=== PATIENT | female | born 1980 | race Caucasian/White ===

== ENCOUNTER 2018-02-14 10:50 | Emergency (ER) | payer SELFPAY ==
[2018-02-14 11:05] VITALS: BP 139/90
--- NOTE | 2018-02-14 12:08 | UC ---
Gigi Dangelo Rebecca, scribed for [facility],Clemente Ferreira MD on 02/14/18 at 1137 . Respiratory Complaint HPI - HPI Summary HPI Summary: In room: Pt is a 37 y/o F who presents to [facility] with a CC of cough and chest pain for about 6 days. Chest pain is associated with cough, located in the central chest with radiation to the back and moderate, ranked 5/10. Cough is productive, though she cannot expel the sputum. Has been taking Nyquil and Mucinex. Additionally c/o L ear pain, sore throat, and sinus congestion (chronic ). Notes mild diarrhea, which is resolved. Denies V/D. Was seen by her PCP 3 days ago (Friday) and was diagnosed with Cipro which was then switched to Amoxicillin which she stopped due to it being ineffective. 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 SHx former smoker - quit multiple years ago. PMHx PNA for which she was not hospitalized though has used inhalers in the past. MD: Vital signs stable. Afebrile, BP 149/90, patient is not being treated for HTN, pulse ox is 98. History of bronchitis, hysterectomy, depression, endometriosis, former smoker. Visit history significant for multiple visits for cough and congestion. Nurse's: pt has had cough, runny nose, sinus pressure, feeling "fuzzy all over" . pt had a chest xray on friday. pt was on cipro and could not sleep so she stopped taking it. started amoxicillin and did not finish it. pt was then rx'd augmentin but did not start it thinking she would feel better. - History of Current Complaint Chief Complaint: UCRespiratory Stated Complaint: COUGH,CONGESTED Time Seen by Provider: 02/14/18 11:27 Hx Obtained From: Patient Hx Last Menstrual Period: 10/12/14 Onset/Duration: Lasting Days - 6 days, Still Present Severity Currently: Moderate Pain Intensity: 7 Pain Scale Used: 0-10 Numeric Character: Cough: Productive Associated Signs And Symptoms: Positive: Pleuritic Chest Pain - Allergies/Home Medications Allergies/Adverse Reactions: Allergies Allergy/AdvReac Type Severity Reaction Status Date / Time enviornmental allergies Allergy See Comment Uncoded 02/14/18 11:06 PMH/Surg Hx/FS Hx/Imm Hx - Additional Past Medical History Additional PMH: POSITIVE PMHx: Endometriosis Respiratory History: Bronchitis Psychological History: Depression - Surgical History Surgical History: Yes Surgery Procedure, Year, and Place: FUSION C4-6, 6,7. CYSTECTOMY. SALPINGECTOMY. hysterectomy - Family History Known Family History: Positive: Cardiac Disease, Other - Stroke - Social History Alcohol Use: Occasionally Substance Use Type: None Smoking Status (MU): Former Smoker Type: Cigarettes Amount Used/How Often: 1-5 per day Length of Time of Smoking/Using Tobacco: 18 yrs on/off Review of Systems Constitutional: Negative Skin: Negative Eyes: Negative ENT: Sore Throat, Ear Ache - Left, Sinus Congestion Respiratory: Cough Cardiovascular: Chest Pain - Central CP with cough Gastrointestinal: Diarrhea - resolved Genitourinary: Negative Motor: Negative Neurovascular: Negative Musculoskeletal: Negative Neurological: Negative Psychological: Negative All Other Systems Reviewed And Are Negative: Yes - Comments Additional Review of Systems Comments: POSITIVE: Productive cough, chest pain (w/ cough), L ear pain, sore throat, sinus congestion, diarrhea (resolved) NEGATIVE: N/V Physical Exam - Summary Physical Exam Summary: Appearance: The patient is well-appearing, is in no pain distress, and is well- nourished. Eyes: Conjunctiva are clear. ENT: The hearing is grossly normal and the TMs are normal. There is no muffled or hoarse voice. Posterior lymph patches. Mild frontal and nasal sinus discomfort with palpation. Neck: The neck is supple and there is no lymphadenopathy. Respiratory: The chest is nontender. There is no respiratory distress. Extended expiratory phase and wheezes bilaterally. Cardiovascular: Heart is regular rate and rhythm. There is no murmur. Abdomen: The abdomen is soft and nontender. There is no organomegaly. Bowel sounds: present Musculoskeletal: Strength is intact. The patient moves all extremities. Neurological: The patient is alert. Psychological: The patient displays age appropriate behavior Skin: Negative for rashes. Triage Information Reviewed: Yes Vital Signs: Initial Vital Signs Temp 97.5 F 02/14/18 11:01 Pulse 84 02/14/18 11:01 Resp 18 02/14/18 11:01 BP 139/90 02/14/18 11:01 Pulse Ox 98 02/14/18 11:01 Vital Signs Reviewed: Yes UC Diagnostic Evaluation - Laboratory O2 Sat by Pulse Oximetry: 98 Respiratory Course/Dx - Course Course Of Treatment: Pt presents with cough and bronchospasm, Hx of previous bronchospasm. She works around aerosolized soaps and this may be contributing to her cough. Dx of bronchtis with bronchospasm and chronic sinusitis. Hypertensive BP reading (>=140/90); patient referred to PCP within 1 day - 4 weeks for follow up. Medications have been included in the original chart and reviewed. - Differential Dx/Diagnosis Differential Diagnosis/HQI/PQRI: Other - PNA vs. URI Provider Diagnoses: 1) Bronchitis with bronchospasm. 2) Chronic sinusitis Discharge - Sign-Out/Discharge Documenting (check all that apply): Discharge - Discharge - Discharge Plan Condition: Stable Disposition: HOME Prescriptions: Albuterol HFA INHALER* [Ventolin HFA Inhaler*] 1 - 2 puff INH Q4H PRN #1 mdi PRN Reason: Shortness Of Breath Benzonatate CAP* [Tessalon CAP*] 100 mg PO TID #20 cap MDD 3 DOXYcycline CAP(*) [DOXYcycline 100MG CAP(*)] 100 mg PO BID #14 cap MDD 2 Inhaler, Assist Devices [Aerochamber Mv] 1 mis XX Q6HR #1 mis Patient Education Materials: Acute Bronchitis (ED), Bronchospasm (ED) Forms: *Work Release Referrals: Fly Leigh MD [Primary Care Provider] - Additional Instructions: Your blood pressure reading today was 139/90, indicating HYPERTENSION. Follow- up with your primary care provider within 4 weeks for blood pressure readings and further evaluation. PLEASE SEEK CARE AT THE EMERGENCY DEPARTMENT IF SYMPTOMS WORSEN OR IF NEW SYMPTOMS DEVELOP. FOLLOW UP WITH YOUR PRIMARY CARE PHYSICIAN. WE DISCUSSED: 1. You have bronchitis with bronchospasm. Begin the albuterol inhaler, 2 puffs , 3 to 4 times a day for 5-7 days. Use spacer. 2. Doxycycline, twice a day for 10 days. 3.Tessalon for cough during the day. 4. Also see instructions below: COUGH, CONGESTION of CHEST, SINUSES OR EARS: The most important goal is to liquefy all the phlegm and get it out of your head and chest. Any illness causing cough, congestion, sore throat or sinus discomfort can be helped by doing the following: STAND UNDER SHOWER STREAM TO LOOSEN SECRETIONS. STAY AWAY FROM ANY SMOKE OR IRRITANTS. WHAT ELSE CAN HELP RELIEVE YOUR SYMPTOMS: GENERAL TYPES OF MEDICINE THAT MAY HELP DECONGESTANTS: helps relieve stuffiness and clears sinuses. Pseudoephedrine ( Sudafed or generic) is effective but you need to ask the pharmacist for it because it may be kept behind the counter. ANTIHISTAMINES: are NOT helpful in many colds and flus because they can worsen sore throat, dry eyes and mouth and cause drowsiness. Examples are diphenhydramine, doxylamine and chlorpheniramine. They can help dry you out if you are having profuse, clear drainage from the nose. EXPECTORANTS: helps thin mucous in the nose and chest, making it easier to clear the fluid out. Expectorants are in most combination cough/cold remedies and should be taken with plenty of water. Guaifenesin is the most common expectorant and it comes in pill or liquid form. Mucinex is an extended release form of guaifenesin. COUGH SUPPRESANT: reduces the body's cough reflex. Dextromethorphan is in over the counter products. Rarely, narcotics such as codeine or hydrocodone are used to suppress cough. SPECIFIC MEDICATIONS: Some of these may come in combination. In general, they all contain the same or similar active ingredients. The most important goal is to liquefy all the phlegm and get it out of your head and chest: The following medicines (you can buy them without prescription) may help: To help with cough: DEXTROMETHORPHAN (Vicks, Robitussin, Nyquil and other brands) To help break up phlegm: GUAIFENESIN (Mucinex, Robitussin, other brands) To help clear congestion: PSEUDOEPHEDRINE (Sudafed, Dimetapp, other brands) TRY TO CLEAR NOSE: AFRIN NASAL SPRAY: 2-3 SPRAYS PER NOSTRIL, TWICE A DAY FOR TWO DAYS ONLY. USEFUL WAYS TO FEEL BETTER WITHOUT MEDICATIONS: STAND UNDER SHOWER STREAM TO LOOSEN SECRETIONS. USE A VAPORIZOR. STAY AWAY FROM ANY SMOKE OR IRRITANTS. USE SALINE NASAL SPRAY TO KEEP FLOW OF MUCOUS FROM NOSTRILS AND SINUSES. CONSIDER USING NETI POT TO HELP WITH ALLERGIES AND CONGESTION IN THE NOSE. USE THIS THREE TIMES A WEEK. YOU CAN GET THIS AT [facility] IN [place] OR VARIOUS DRUGSTORES. DRINK LOTS OF WARM FLUIDS USEFUL HOME REMEDIES: WARM WATER GARGLES, WITH TSP OF SALT PER 8 OUNCES OF WATER, GARGLE FOR A FEW SECONDS AND SPIT OUT; GARGLE AND SPIT OUT; EVERY THREE HOURS. AND/OR: WARM WATER OR TEA, HONEY AND LEMON; 2-3 CUPS A DAY. FOR SORE THROAT: KEEP THROAT MOIST WITH LOZENGES; TEA AND HONEY. USE WARM WATER GARGLES 3-4 TIMES A DAY. FOLLOW UP: RE-CHECK IN 1O DAYS, NEEDED, IF YOU ARE NOT IMPROVING. RETURN HERE OR SEE YOUR PHYSICIAN. RE-CHECK SOONER IF INCREASED PAIN OR TEMPERATURE. - Billing Disposition and Condition Condition: STABLE Disposition: HOME The documentation as recorded by the Gigi pollock Rebecca accurately reflects the service I personally performed and the decisions made by me, Clemente Condon MD.
== END 2018-02-14 12:13 | disposition home or self-care (01) ==
LOC: UCEAST 10:50
DX: J20.9 Acute bronchitis, unspecified (principal); J32.9 Chronic sinusitis, unspecified; H92.02 Otalgia, left ear; N80.9 Endometriosis, unspecified; F32.9 Major depressive disorder, single episode, unspecified; Z87.891 Personal history of nicotine dependence
CPT/HCPCS: 99212; G0463

== ENCOUNTER 2018-11-07 11:08 | Emergency (ER) | payer SELFPAY ==
[2018-11-07 11:19] VITALS: BP 135/86
--- NOTE | 2018-11-07 11:45 | UC ---
Ear Complaint HPI - HPI Summary HPI Summary: 38-year-old woman comes to clinic today with a chief complaint of right ear pain. Been going on for more than a week. She has pain in her right upper jaw where she is got a recurrent dental infection. Minimal rhinorrhea. The tooth does hurt more when she presses on it. No fevers or chills. No cough or chest congestion. She has been taking ibuprofen which does help decrease the pain. No known trauma. - History of Current Complaint Chief Complaint: UCEar Stated Complaint: R EAR COMPLAINT Time Seen by Provider: 11/07/18 11:31 Hx Last Menstrual Period: hysterectomy Pain Intensity: 10 - Allergies/Home Medications Allergies/Adverse Reactions: Allergies Allergy/AdvReac Type Severity Reaction Status Date / Time enviornmental allergies Allergy See Comment Uncoded 11/07/18 11:19 PMH/Surg Hx/FS Hx/Imm Hx Previously Healthy: Yes Respiratory History: Asthma - Surgical History Surgical History: Yes Surgery Procedure, Year, and Place: FUSION C4-6, 6,7. CYSTECTOMY. SALPINGECTOMY. hysterectomy - Family History Known Family History: Positive: None, Cardiac Disease, Other - Stroke - Social History Alcohol Use: Rare Substance Use Type: None Smoking Status (MU): Former Smoker Type: Cigarettes Amount Used/How Often: 1-5 per day Length of Time of Smoking/Using Tobacco: 18 yrs on/off Review of Systems All Other Systems Reviewed And Are Negative: Yes Constitutional: Positive: Negative Skin: Positive: Negative Eyes: Positive: Negative ENT: Positive: Dental Pain, Ear Ache, Nasal Discharge, Sinus Congestion Respiratory: Positive: Negative Cardiovascular: Positive: Negative Gastrointestinal: Positive: Negative Motor: Positive: Negative Neurovascular: Positive: Negative Musculoskeletal: Positive: Negative Neurological: Positive: Negative Psychological: Positive: Negative Is Patient Immunocompromised?: No Physical Exam Triage Information Reviewed: Yes Appearance: Well-Appearing, Well-Nourished, Pain Distress - mild Vital Signs: Initial Vital Signs Temp 98 F 11/07/18 11:16 Pulse 85 11/07/18 11:16 Resp 16 11/07/18 11:16 BP 135/86 11/07/18 11:16 Pulse Ox 98 11/07/18 11:16 Vital Signs Reviewed: Yes Eye Exam: Normal Eyes: Positive: Conjunctiva Clear ENT: Positive: Pharynx normal, Nasal congestion, Nasal drainage, TMs normal, Other - Tender to palpation of the right tragus. There is no debris in the ear canal. The parotid and submandibular glands are nonswollen or tender. She is not tender at the TMJ. Oral pharynx is open. A right upper molar is tender to palpation. Neck exam: Normal Neck: Positive: Supple Respiratory: Positive: Lungs clear, Normal breath sounds, No respiratory distress Cardiovascular: Positive: RRR Musculoskeletal Exam: Normal Musculoskeletal: Positive: Strength Intact, ROM Intact Neurological Exam: Normal Neurological: Positive: Alert, Muscle Tone Normal Psychological Exam: Normal Psychological: Positive: Age Appropriate Behavior Skin Exam: Normal Ear Complaint Course/Dx - Course Course Of Treatment: Patient did have some tenderness to palpation of the right tragus. Also does have some dental pain. Most probable cause of the pain is dental infection therefore we will treat with Augmentin. I would also treat for any sinusitis. Patient has ibuprofen and acetaminophen that she will continue to take as prescribed for her pain she declines any narcotics. Prescribed an antibiotic eardrops for the possibility of otitis externa although I believe the ear pain is actually radiated pain from the tooth. Follow-up with primary care doctor and also her dentist. Evaluation sooner if worse. - Differential Dx/Diagnosis Provider Diagnosis: Toothache, Right ear pain Discharge - Sign-Out/Discharge Documenting (check all that apply): Patient Departure All imaging exams completed and their final reports reviewed: No Studies - Discharge Plan Condition: Stable Disposition: HOME Prescriptions: Amoxicillin/Clavulanate TAB* [Augmentin TAB 875*] 875 mg PO BID #20 tab Neomyc/Polym/HC 1% OTIC SUSP* [Cortisporin Otic Susp 1%*] 4 drop LEFT EAR QID # 1 btl Patient Education Materials: Earache (ED), Toothache (ED) Referrals: Fly Leigh MD [Primary Care Provider] - Additional Instructions: FOLLOW UP WITH YOUR DOCTOR IF NOT COMPLETELY IMPROVED. GET RECHECKED FOR ANY WORSENING OF YOUR CONDITION OR QUESTIONS OR CONCERNS. - Billing Disposition and Condition Condition: STABLE Disposition: Home
== END 2018-11-07 12:13 | disposition home or self-care (01) ==
LOC: UCEAST 11:08
DX: H92.01 Otalgia, right ear (principal); K08.89 Other specified disorders of teeth and supporting structures; J45.909 Unspecified asthma, uncomplicated; Z87.891 Personal history of nicotine dependence; Z91.09 Other allergy status, other than to drugs and biological substances
CPT/HCPCS: 99212; G0463

== ENCOUNTER 2018-11-19 19:39 | Emergency (ER) | payer OTHER ==
--- OUTSIDE RECORDS SUMMARY | 2018-11-19 19:45 | XMS REPORT ---
:1980 Author Organization [facility] Care Team Providers Name Role Phone Ashu Shipley Unavailable Unavailable PROBLEMS Unknown Problems ALLERGIES No Information ENCOUNTERS Encounter Location Date Diagnosis [facility] [address] [place] [id number] Nov, [facility] [address] [place] [address] Oct, [id number] [id number] March, IMMUNIZATIONS No Known Immunizations SOCIAL HISTORY Never Assessed REASON FOR REFERRAL FUNCTIONAL STATUS PLAN OF CARE VITAL SIGNS MEDICATIONS Unknown Medications PROCEDURES No Known procedures RESULTS No Results REASON FOR VISIT Acute triage dental Insurance Providers [facility] Member Patient Patient Patient Patient Patient Subscriber Subscriber Subscriber Group Insurance Plan Plan Plan Plan ID Relationship Address Phone Name Date of ID Name Date of No Type Insurance Insurance Insurance Coverage to Subscriber Address Phone Name Dates [employer] [phone] [employer] self Daron [id number] [employer] [place] [address] [place] [id number] [address]
[2018-11-19 19:49] VITALS: BP 156/98
[2018-11-19] MEDS ORDERED: Famotidine TAB* 20 MG PO ONE ×2 (20:07→20:52)
[2018-11-19] MEDS ORDERED: predniSONE TAB* 20 MG PO ONE ×2 (20:07→20:52)
[2018-11-19] MEDS ORDERED: diPHENhydraMINE PO* 50 MG PO ONE ×2 (20:07→20:53)
--- NOTE | 2018-11-19 20:14 | UC ---
Allergic Reaction HPI - HPI Summary HPI Summary: 38-year-old woman comes to clinic today with a chief complaint of itching and rash. This started about 2 hours ago. 2 days ago she had a CT scan with IV contrast. Does not know of any other potential new allergen. The itching and the rash is diffuse it's worse on the upper arms and neck. Denies any difficulty with breathing or swallowing. - History of Current Complaint Chief Complaint: UCSkin Stated Complaint: RASH AND ITCHINESS Time Seen by Provider: 11/19/18 20:02 Hx Last Menstrual Period: hysterectomy Pain Intensity: 0 - Allergies/Home Medications Allergies/Adverse Reactions: Allergies Allergy/AdvReac Type Severity Reaction Status Date / Time contrast dye Allergy Rash Uncoded 11/19/18 19:50 enviornmental allergies Allergy See Comment Uncoded 11/19/18 19:50 Home Medications: Home Medications Budesonide/Formote 160/4.5(NF) [Symbicort 160/4.5 (NF)] 2 puff INH BID 11/19/18 [History Confirmed 11/19/18] PMH/Surg Hx/FS Hx/Imm Hx Previously Healthy: Yes Respiratory History: Asthma - Surgical History Surgical History: Yes Surgery Procedure, Year, and Place: FUSION C4-6, 6,7. CYSTECTOMY. SALPINGECTOMY. hysterectomy - Family History Known Family History: Positive: None, Cardiac Disease, Other - Stroke - Social History Alcohol Use: Occasionally Substance Use Type: None Smoking Status (MU): Former Smoker Type: Cigarettes Amount Used/How Often: 1-5 per day Length of Time of Smoking/Using Tobacco: 18 yrs on/off Review of Systems All Other Systems Reviewed And Are Negative: Yes Constitutional: Positive: Other - diffuse puritis Skin: Positive: Rash Eyes: Positive: Negative ENT: Positive: Negative. Negative: Sore Throat Respiratory: Positive: Negative. Negative: Shortness Of Breath Cardiovascular: Positive: Negative Gastrointestinal: Positive: Negative Motor: Positive: Negative Neurovascular: Positive: Negative Musculoskeletal: Positive: Negative Neurological: Positive: Negative Psychological: Positive: Negative Is Patient Immunocompromised?: No Physical Exam Triage Information Reviewed: Yes Appearance: Well-Appearing, No Pain Distress, Well-Nourished Vital Signs: Initial Vital Signs Temp 98.6 F 11/19/18 19:43 Pulse 76 11/19/18 19:43 Resp 18 11/19/18 19:43 BP 156/98 11/19/18 19:43 Pulse Ox 99 11/19/18 19:43 Vital Signs Reviewed: Yes Eye Exam: Normal Eyes: Positive: Conjunctiva Clear ENT: Positive: Pharynx normal - oropharynx open, TMs normal, Uvula midline. Negative: Muffled voice, Hoarse voice Neck exam: Normal Neck: Positive: Supple Respiratory: Positive: Lungs clear, Normal breath sounds, No respiratory distress. Negative: Stridor, Wheezing Cardiovascular: Positive: RRR Musculoskeletal Exam: Normal Musculoskeletal: Positive: Strength Intact, ROM Intact Neurological Exam: Normal Neurological: Positive: Alert, Muscle Tone Normal Psychological Exam: Normal Psychological: Positive: Age Appropriate Behavior Skin: Positive: Other - Diffuse diffuse blanching rash erythematous upper arms and neck Allergic Reaction Course/Dx - Course Course Of Treatment: Patient is improved in clinic after Benadryl 50 mg Pepcid 40 mg and prednisone 60 mg by mouth. I let the patient know she needs to consider herself allergic to IV contrast. No other potential allergen has been identified at this time. I also wrote for more medications to be used as needed. Follow-up with primary care doctor. To the emergency department if worse or any questions or concerns. - Differential Dx/Diagnosis Provider Diagnosis: Allergic reaction Discharge - Sign-Out/Discharge Documenting (check all that apply): Patient Departure All imaging exams completed and their final reports reviewed: No Studies - Discharge Plan Condition: Stable Disposition: HOME Prescriptions: Famotidine TAB* [Pepcid 20 MG TAB*] 20 mg PO BID PRN #8 tab PRN Reason: Allergy Symptoms predniSONE TAB* [Deltasone 20 MG TAB*] 40 mg PO DAILY PRN #8 tab PRN Reason: Allergy Symptoms Patient Education Materials: General Allergic Reaction (ED) Referrals: Fly Leigh MD [Primary Care Provider] - Additional Instructions: CONSIDER YOURSELF ALLERGIC TO IV CONTRAST DYE. FOLLOW UP WITH YOUR DOCTOR IF NOT COMPLETELY IMPROVED. GO TO THE EMERGENCY DEPARTMENT FOR ANY WORSENING OF YOUR CONDITION; DIFFICULTY BREATHING OR SWALLOWING OR QUESTIONS OR CONCERNS. TAKE BENADRYL 50MG EVERY 6 HOURS NEEDED. TAKE PEPCID 20MG TWICE A DAY NEEDED. TAKE THE PREDNISONE DIRECTED NEEDED. - Billing Disposition and Condition Condition: STABLE Disposition: Home
== END 2018-11-19 21:08 | disposition home or self-care (01) ==
LOC: UCEAST 19:39
DX: T78.40XA Allergy, unspecified, initial encounter (principal); X58.XXXA Exposure to other specified factors, initial encounter; Z91.041 Radiographic dye allergy status; J45.909 Unspecified asthma, uncomplicated; Z87.891 Personal history of nicotine dependence
CPT/HCPCS: 99213; A9270-GY; G0463; J7512

== ENCOUNTER 2019-08-01 07:12 | Emergency (ER) | payer SELFPAY ==
--- NOTE | 2019-08-01 07:17 | UC ---
Dizzy HPI HPI Summary: Patient is39 year old female , who present today to the urgent care with dizzy episodes for past2 weeks. She also reports that there is sinus fullness and ear pain bilaterally.. Describes dizziness as room spinning when she lays down, also positional in nature when she moves her head.. Denies any fevers or chills. She has a history of C4 to C6 fusion but denies any neck pain at this time. No headaches. Reports postnasal drip and greenish nasal discharge. Denies any fever, chills, cough, chest pain or shortness of breath . No diaphoresis. Denies any abdominal pain , nausea or vomiting , diarrhea or constipation. She reports that she spoke to her primary care doctor and was advised meclizine for BPPV. She has not tried any meclizine yet. She also feels that this time the ear because of the changes in weather she becomes allergic and takes Zyrtec for that. 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 - History Of Current Complaint Stated Complaint: DIZZINESS Time Seen by Provider: 08/01/19 07:14 Hx Obtained From: Patient Hx Last Menstrual Period: hysterectomy ?: No - Allergies/Home Medications Allergies/Adverse Reactions: Allergies Allergy/AdvReac Type Severity Reaction Status Date / Time contrast dye Allergy Rash Uncoded 08/01/19 07:25 enviornmental allergies Allergy See Comment Uncoded 08/01/19 07:25 Home Medications: Home Medications Cetirizine* [ZyrTEC 10 MG TAB*] 10 mg PO BEDTIME 08/01/19 [History Confirmed ] PMH/Surg Hx/FS Hx/Imm Hx - Additional Past Medical History Additional PMH: Past Medical History : Endometriosis, asthma, depression, allergies Past Surgical History: Partial hysterectomy Family History : non contributory Social History : Occasional alcohol, former smoker, no drug use.Works at the [employer] Previously Healthy: Yes - Surgical History Surgical History: Yes Surgery Procedure, Year, and Place: FUSION C4-6, 6,7. CYSTECTOMY. SALPINGECTOMY. hysterectomy - Family History Known Family History: Positive: None, Cardiac Disease, Other - Stroke, Non- Contributory - Social History Alcohol Use: Occasionally Substance Use Type: None Smoking Status (MU): Former Smoker Type: Cigarettes Amount Used/How Often: 1-5 per day Length of Time of Smoking/Using Tobacco: 18 yrs on/off Review of Systems All Other Systems Reviewed And Are Negative: Yes Constitutional: Positive: Negative Skin: Positive: Negative Eyes: Positive: Negative ENT: Positive: Ear Ache - Bilateral, Nasal Discharge - Greenish, Sinus Congestion - Bilateral, Other - Dizziness, vertigo Respiratory: Positive: Negative Cardiovascular: Positive: Negative Gastrointestinal: Positive: Negative Genitourinary: Positive: Negative Motor: Positive: Negative Neurovascular: Positive: Negative Musculoskeletal: Positive: Negative Neurological: Negative: Headache Psychological: Positive: Negative Is Patient Immunocompromised?: No Physical Exam - Summary Physical Exam Summary: Physical Exam: Const: Appears well. No signs of apparent distress present. Alert and oriented x 3. Musculo: Walks with a normal gait. Head/Face: Atraumatic, normocephalic on inspection. Eyes: EOMI and PERRLA in both eyes. Conjunctivae clear. No discharge noted ENT: Hearing normal, TM normal appearing bilaterally, non bulging , non erythematous . No tenderness on palpation / manipulation of Tragus. No mastoid tenderness. There is tenderness to palpation on maxillary and frontal sinus bilaterally No pharyngeal erythema or exudates . Uvula is midline. No postnasal drip noted No cervical or submandibular lymphadenopathy noted. Respiratory: Respirations are unlabored. Lungs clear to auscultation bilaterally, no wheezing , rhonchi or rales noted . CVS: Regular rate and Rhythm, S1S2 normal , no murmurs identified. Extremities: Peripheral circulation is grossly normal. Pulses 2+ Abdomen : Soft non tender , nondistended , Bowel sounds present . No guarding , rebound tenderness or rigidity noted. Skin: No lesions or rash located on the upper extremities or on the lower extremities. Neuro: Cranial nerves II to XII intact, motor and sensory intact. DTR Intact bilaterally. Mood is normal. Affect is normal. Triage Information Reviewed: Yes Vital Signs Reviewed: Yes Dizzy Course/Dx - Course Course Of Treatment: During the visit today, wediscussed the findings- sometimes rhinosinusitis with BPPV, I will prescribe the medication to the pharmacy . Plan to treat her with Augmentin since it has been one on for 2 weeks. Advise her to follow with ENT if no improvement in one week. Patient expressed understanding - Differential Dx/Diagnosis Provider Diagnosis: Rhinosinusitis, Vertigo, BPPV (benign paroxysmal positional vertigo) Discharge ED - Sign-Out/Discharge Documenting (check all that apply): Patient Departure All imaging exams completed and their final reports reviewed: No Studies - Discharge Plan Condition: Stable Disposition: HOME Prescriptions: Amoxicillin/Clavulanate TAB* [Augmentin TAB 875*] 875 mg PO BID 7 Days #14 tab Loratadine/Pseudoephedrine [Claritin-D 24 Hour Tablet] 1 each PO DAILY 10 Days # 10 tab.er.24h Meclizine TAB* [Antivert 12.5 TAB*] 25 mg PO TID PRN 10 Days #30 tab PRN Reason: Dizziness Patient Education Materials: Sinusitis (ED), Vertigo (ED), Benign Paroxysmal Positional Vertigo (ED) Forms: *Work Release Referrals: Fly Leigh MD [Primary Care Provider] - Андрей Sandhu MD [Medical Doctor] - 1 Week Additional Instructions: Please start taking the medication as prescribed to the pharmacy . Follow up with ENT in 1 week if no better BPPV exercises. Return to Urgent care / ER if symptoms get worse. - Billing Disposition and Condition Condition: STABLE Disposition: Home
[2019-08-01 07:25] VITALS: BP 113/88
== END 2019-08-01 08:15 | disposition home or self-care (01) ==
LOC: UCEAST 07:12
DX: H81.10 Benign paroxysmal vertigo, unspecified ear (principal); J32.9 Chronic sinusitis, unspecified; J45.909 Unspecified asthma, uncomplicated; F32.9 Major depressive disorder, single episode, unspecified; Z87.891 Personal history of nicotine dependence
CPT/HCPCS: 99212; G0463

== ENCOUNTER 2020-01-03 19:38 | Emergency (ER) | payer OTHER ==
[2020-01-03 20:57] VITALS: BP 132/83
[2020-01-03] MEDS ORDERED: Albuterol/Ipratropium NEB.SOL* Albuterol 2.5 MG/Ipratropium 0.5 MG 3 ML INH ONE (21:23)
--- NOTE | 2020-01-03 21:55 | UC ---
Respiratory Complaint HPI - HPI Summary HPI Summary: Ptp resents with cough, fever and fatigue. Pt states using inhaler with releif. No nausea, vomiting. mild chest painw ith cough. + sinus congestion and PND. No rash no bronson, vision changes pt medications as entered in EMR reviewed this visit - History of Current Complaint Chief Complaint: UCGeneralIllness Stated Complaint: COUGH/CHEST CONGESTION Time Seen by Provider: 01/03/20 21:14 Hx Obtained From: Patient Hx Last Menstrual Period: hysterectomy Pain Intensity: 7 - Allergies/Home Medications Allergies/Adverse Reactions: Allergies Allergy/AdvReac Type Severity Reaction Status Date / Time contrast dye Allergy Rash Uncoded 01/03/20 20:58 enviornmental allergies Allergy See Comment Uncoded 01/03/20 20:58 Home Medications: Home Medications Montelukast Sodium TAB* [Singulair TAB*] 5 mg PO DAILY 01/22/16 [History Confirmed 01/03/20] Albuterol HFA INHALER* [Ventolin HFA Inhaler*] 1 - 2 puff INH Q4H PRN #1 mdi 05/27 [Rx Confirmed 01/03/20] Inhaler, Assist Devices [Aerochamber Mv] 1 mis XX Q6HR #1 mis 02/14/18 [Rx Confirmed 01/03/20] Budesonide/Formote 160/4.5(NF) [Symbicort 160/4.5 (NF)] 2 puff INH BID 11/19/18 [History Confirmed 01/03/20] Cetirizine* [ZyrTEC 10 MG TAB*] 10 mg PO BEDTIME 08/01/19 [History Confirmed ] Amoxicillin/Clavulanate TAB* [Augmentin TAB 875*] 875 mg PO BID #20 tab [Rx] predniSONE 50 mg TAB [Deltasone 50 mg TAB] 50 mg PO DAILY #5 tab 01/03/20 [Rx] PMH/Surg Hx/FS Hx/Imm Hx Previously Healthy: Yes - Surgical History Surgical History: Yes Surgery Procedure, Year, and Place: FUSION C4-6, 6,7. CYSTECTOMY. SALPINGECTOMY. hysterectomy - Family History Known Family History: Positive: None, Cardiac Disease, Other - Stroke, Non- Contributory - Social History Occupation: Employed Full-time Lives: With Family Alcohol Use: Occasionally Substance Use Type: None Smoking Status (MU): Former Smoker Type: Cigarettes Amount Used/How Often: 1-5 per day Length of Time of Smoking/Using Tobacco: 18 yrs on/off Review of Systems All Other Systems Reviewed And Are Negative: Yes Constitutional: Positive: Fever, Fatigue ENT: Positive: Sinus Congestion Respiratory: Positive: Cough Cardiovascular: Positive: Negative Gastrointestinal: Positive: Negative Physical Exam - Summary Physical Exam Summary: Vital Signs Reviewed: Yes A+Ox3, no distress, coarse cough Eyes: Conjunctiva Clear, LISANDRO. EOM intact and full ENT: Hearing grossly normal TM x 2 clear, mmoist, turbiantes inflammed and boggy uvula midline, no exudate, no erythema Neck: Positive: Supple Respiratory: Positive: No respiratory distress, No accessory muscle use + coarse cough, exp wheeze Cardiovascular: RRR nl s1, s2 no m/r CBT <2 sec abd soft + BS nt/nd no guarding, no distension Musculoskeletal Exam: CONNELL x 4 without difficulty Strength Intact, ROM Intact Neurological: Positive: Alert, + sensation throughout Psychological: Positive: Normal Response To behavioral health rn Skin: Positive: no rash, no ecchymosis Vital Signs: Initial Vital Signs Temp 98.2 F 01/03/20 20:52 Pulse 86 01/03/20 20:52 Resp 20 01/03/20 20:52 BP 132/83 01/03/20 20:52 Pulse Ox 99 01/03/20 20:52 Re-Evaluation - Re-Evaluation First Eval Comment: states feels better following neb. less wheeze. will Rx albuterol aerochamber. pred. if sx persiste abx - asthma, tobacco exposure. retur precautions Respiratory Course/Dx - Course Course Of Treatment: Pt presents with congestion, cough and wheeze pt denies fever, mild sinus pt using albtuerol with some improvement itals reviewed coarse cough non productive exp wheeze no distress pt refusing influenza will give neb and reasses - Differential Dx/Diagnosis Provider Diagnosis: Cough, Upper respiratory infection Discharge ED - Sign-Out/Discharge Documenting (check all that apply): Patient Departure All imaging exams completed and their final reports reviewed: No Studies - Discharge Plan Condition: Stable Disposition: HOME Prescriptions: Amoxicillin/Clavulanate TAB* [Augmentin TAB 875*] 875 mg PO BID #20 tab predniSONE 50 mg TAB [Deltasone 50 mg TAB] 50 mg PO DAILY #5 tab Patient Education Materials: Upper Respiratory Infection (ED), Acute Cough (ED) Forms: *Gen. Provider Communication, *Work Release Referrals: Fly Leigh MD [Primary Care Provider] - Additional Instructions: -Use your albuterol puffer - 2 puffs every 4 hours for the next 2 days - then as needed - use you spacer with your inhaler - Take prednisone daily as prescribed until gone --Stay well hydrated - avoid excess caffeine and all alcohol - eat regular, healthy meals - - humidify the air in the room where you sleep - boil water, run a hot steam shower, vaporizer, cups of water by heat register - okay to take over the counter decongestant and cough medication -- These infections are spread by secretions - do NOT share eating or drinking utensils - clean items you share with other people such as cell phones, computer mouse, TV remote, computer tablets,etc.. Once you start to feel better , change your toothbrush and your pillowcase. - If your symptoms persist or worsen, okay to take antibiotics as prescribed starting Friday -Contact your doctor to arrange a follow-up appointment this week. Call your doctor, return here or go to the emergency department with any questions or concerns - Billing Disposition and Condition Condition: STABLE Disposition: Home
== END 2020-01-03 22:10 | disposition home or self-care (01) ==
LOC: UCCORT 19:38
DX: J06.9 Acute upper respiratory infection, unspecified (principal); R05 Cough; Z91.041 Radiographic dye allergy status; Z91.09 Other allergy status, other than to drugs and biological substances; Z87.891 Personal history of nicotine dependence
CPT/HCPCS: 99212; A9270-GY; G0463